=== PATIENT | male | born 1990 | race African-American/Black ===

== ENCOUNTER 2025-02-09 20:31 | Emergency (ER) | payer OTHER, SELFPAY ==
[2025-02-09 20:42] VITALS: BP 128/77; PULSE 76; RESP 18; TEMP 36.6; O2SAT 99; BMI 30.4
[2025-02-09] MEDS: doxycycline 100 mg Tablet PO (22:06)
[2025-02-09] MEDS: ibuprofen 800 mg tablet PO (22:06)
[2025-02-09] MEDS: tetanus-dipt-pertussis 0.5 mL SDV IM (22:07)
[2025-02-09 22:18] VITALS: BP 124/76; PULSE 73; O2SAT 95
--- NOTE | 2025-02-09 22:34 | ED_ITS ---
HPI - Wound/Laceration General: Chief Complaint: Wound/Laceration Stated Complaint: Rt Had Finger Injury Time Seen by Provider: 02/09/25 20:55 Source: patient Mode of arrival: ambulatory Limitations: no limitations History of Present Illness: Patient is a 34-year-old male who presents the emergency department with injury to right ring finger. He was using a cucumber slicer and sliced the tip of his finger, this does involve the nailbed. Bleeding controlled on arrival. States tetanus is not up-to-date. Has not taken anything for pain. No distal neurovascular compromise or other symptoms to report at this time. Onset (ago): minute(s) Extremity Location: Right: hand (Ring finger) Place: home Patient tetanus UTD: No Context: accidental Associated symptoms: Reports no associated symptoms; Denies chills, fever(s), nausea or vomiting Treatments prior to arrival: bandage Related Data Previous Rx's ?Medication ?Instructions ?Recorded meloxicam 15 mg tablet 15 mg PO DAILY #20 tabs 03/25 01/17 doxycycline hyclate 100 mg tablet 100 mg PO BID 7 days #14 tabs 02/09/25 Allergies Allergy/AdvReac Type Severity Reaction Status Date / Time No Known Allergies Allergy Verified 02/09/25 20:44 Review of Systems General: Reports: 10 or more systems reviewed and unremarkable except in HPI and below Const: Denies: fever(s) or chills Card: Denies: chest pain Resp: Denies: dyspnea GI: Denies: abdominal pain, nausea, vomiting or diarrhea Musc: Denies: extremity pain or joint pain Skin/Breast: Reports: skin pain, skin tenderness and new lesions (Laceration to tip of right ring finger); Denies: rash Neuro: Denies: headache(s) Physical Exam Const: COMMON NORMALS: no acute distress, average body habitus, patient georgie ented x3, no limitations, healthy appearing, alert and well nourished HENMT: COMMON NORMALS: normocephalic and atraumatic HEAD & SCALP: normocephalic and atraumatic Neck/C-Spine: COMMON NORMALS: full ROM, no lymphadenopathy, supple and no meningeal signs Resp: COMMON NORMALS: normal respiratory effort, No use of accessory muscles and clear to auscultation bilaterally AUSCULTATION: clear to auscultation bilaterally Cardio: COMMON NORMALS: regular rate and regular rhythm RATE: regular rate RHYTHM: regular rhythm Extremity: COMMON NORMALS: full ROM and capillary refill normal Neuro: COMMON NORMALS: patient oriented x3, moves all extremities, no focal motor deficits and no sensory deficits noted SENSORIUM/ORIENTATION: Yes alert MENINGEAL SIGNS: Yes no meningeal signs Skin: COMMON NORMALS: turgor normal NARRATIVE SKIN EXAM: There is a shear type circumferential laceration to tip of right ring finger that does not involve the distal portion of the nail, nailbed intact with no avulsion. This is superficial and does not appear contaminated. Tender to palpation. GENERAL SKIN EXAM: turgor normal Course Vital Signs: Vital signs: Vital Signs Temperature 97.9 F 02/09/25 20:42 Pulse Rate 73 02/09/25 22:18 Respiratory Rate 18 02/09/25 20:42 Blood Pressure 124/76 02/09/25 22:18 Pulse Oximetry 95 02/09/25 22:18 Oxygen Delivery Me thod Room Air 02/09/25 20:42 MDM - Wound/Laceration Medical Decision Making This patient lacerated tip of right ring finger with cucumber slicer, on exam there was no further approximation of the wound as it was superficial and did appear to be a shear type laceration. Was not contaminated but did involve the tip of the nail with intact nail bed. The wound was cleaned and soaked with Betadine and normal saline. Bleeding was controlled. His tetanus was updated today. He will be started on doxycycline and we discussed wound care. Return precautions were given, which she verbalized understanding. No radiology studies performed this visit Discharge Plan Discharge Patient Disposition: Home Clinical Impression: Laceration of right ring finger Qualifiers: Encounter type: initial encounter Damage to nail status: with damage Foreign body presence: without foreign body Qualified Code(s): S61.314A - Laceration without foreign body of right ring finger with damage to nail, initial encounter Condition: Stable Prescriptions: New doxycycline hyclate 100 mg tablet 100 mg PO BID 7 Days Qty: 14 0RF No Action meloxicam 15 mg tablet 15 mg PO DAILY Qty: 20 0RF Discharge Orders: Discharge ED (Routine); Ordered 02/09/25 Ordered By: Dangelo Griffiths Patient Instructions: Finger Laceration (ED) Activity Restrictions/Additional Instructions: Do not soak the wound, keep it dry and clean. Take ibuprofen and Tylenol for pain. Take doxycycline as prescribed. Your tetanus was updated today, 02/09/2025. Please return with any white discharge, severe worsening of pain or swelling, or any other concerns or signs of infection. 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
== END 2025-02-09 22:19 | disposition home or self-care (01) ==
PROVIDERS: Emergency Provider Physician Assistant
DX: S61.314A Laceration without foreign body of right ring finger with damage to nail, initial encounter (principal); W26.8XXA Contact with other sharp object(s), not elsewhere classified, initial encounter; Z23 Encounter for immunization
CPT/HCPCS: 90471; 90715; 99283; J9999